=== PATIENT | male | born 1975 | race African-American/Black ===

== ENCOUNTER 2023-07-03 09:27 | Outpatient (CLI) | payer OTHER, SELFPAY ==
--- NOTE | 2023-07-03 09:59 | ECHO_ITS ---
Patient Info Name: Eddie Roldan Age: 47 years : 1975 Gender: Male Ht: 67 in Wt: 220 lbs BSA: 2.21 m2 HR: 102 bpm BP: 140 / 95 mmHg Technical Quality: Fair Exam Date: 07/03/2023 10:07 AM Exam Location: Echo Lab Patient Status: Outpatient Admit Date: 07/03/2023 Staff Ordering Physician: Kristen Mojica NP Deaf/Hard Of Hearing Specialist: Cara Mosher RDCS Attending Provider: Kristen Mojica NP Referring Physician: Yunior CASTILLO; Exam Type: CA echo doppler color flow Study Info Indications - abn ekg Complete two-dimensional, color flow and Doppler transthoracic echocardiogram is performed. Summary 1. Complete two-dimensional, color flow and Doppler transthoracic echocardiogram is performed. 2. Left ventricular systolic function is severely globally reduced, estimated at 30-35%. 3. Left ventricular chamber dimension is moderately enlarged. 4. There is mild concentric increased left ventricular wall thickness. 5. The left ventricular diastolic function is indeterminate. 6. Tissue doppler E/e' is not performed. 7. Global longitudinal strain is abnormal at -11.5% with apical sparing. 8. Left atrial chamber dimension is mildly enlarged. 9. There is trace tricuspid valve regurgitation. 10. No pulmonary hypertension, estimated pulmonary arterial systolic pressure is 28 mmHg. 11. There is trace pulmonic regurgitation. Left Ventricle Tissue doppler E/e' is not performed. Global longitudinal strain is abnormal at -11.5% with apical sparing. Left ventricular systolic function is severely globally reduced, estimated at 30-35%. Left ventricular chamber dimension is moderately enlarged. There is mild concentric increased left ventricular wall thickness. The left ventricular diastolic function is indeterminate. Right Ventricle Right ventricular chamber dimension is normal. Right ventricular systolic function is normal. Left Atria Left atrial chamber dimension is mildly enlarged. Right Atria Right atrial chamber dimension is normal. Aortic Valve The aortic valve is trileaflet. There is no aortic valve stenosis. There is no aortic valve regurgitation. Pulmonic Valve There is trace pulmonic regurgitation. Mitral Valve There is no mitral valve stenosis. There is no mitral valve regurgitation. Tricuspid Valve There is trace tricuspid valve regurgitation. No pulmonary hypertension, estimated pulmonary arterial systolic pressure is 28 mmHg. Pericardium/Pleural There is no pericardial effusion. Inferior Vena Cava Normal inferior vena cava with >50% collapse upon inspiration consistent with normal right atrial pressure, 5 mmHg. Aorta The aortic root size at the sinus of Valsalva is normal. Left Ventricular Outflow Tract Name Value Normal LVOT 2D LVOT Diameter 2.1 cm LVOT Doppler LVOT Peak Gradient 5 mmHg LVOT Mean Gradient 2 mmHg LVOT VTI 17 cm LVOT VTI/AV VTI Ratio 0.8 LVOT Stroke Volume 60 ml LVOT CO 14.9 l/min LVOT CI 6.8 l/min/m2 Pulmonic Valve
== END 2023-07-03 09:28 | disposition home or self-care (01) ==
PROVIDERS: PCP Internal Medicine; Visit Provider Nurse Practitioner
DX: R94.31 Abnormal electrocardiogram [ECG] [EKG] (principal); I51.7 Cardiomegaly
CPT/HCPCS: 93306

== ENCOUNTER 2023-08-05 09:54 | Outpatient (CLI) | payer OTHER, SELFPAY ==
[2023-08-05 12:17] LABS: Basophils Percent Auto 0.9 % (0.2-1.2); Eosinophils Absolute Auto 0.1 K/mm3 (0-0.3); Eosinophils Percent Auto 3.4 % (0-4.4); Hematocrit 44.2 % (42.0-52.0); Hemoglobin 14.5 g/dL (14.0-18.0); Lymphocytes Absolute Auto 1.22 K/mm3 (0.9-3.2); Lymphocytes Percent Auto 37.7 % (18.3-44.2); Mean Corpuscular HGB Conc 32.8 g/dl (32-36); Mean Corpuscular Hemoglobin 29.1 pg (26-34); Mean Corpuscular Volume 88.8 fl (80-100); Mean Platelet Volume 10.2 fl (7.4-10.4); Monocytes Absolute Auto 0.3 K/mm3 (0.1-0.6); Monocytes Percent Auto 9.3 % (2.6-8.5); Neutrophils Absolute Auto 1.6 K/mm3 (1.3-6.7); Neutrophils Percent Auto 48.7 % (45.5-73.1); Platelet Count Result 285 k/mm3 (150-375); Red Blood Count 4.98 M/mm3 (4.6-6.20); Red Cell Distribution Width 14.2 % (11.5-14.5); White Blood Count 3.2 K/mm3 (4.5-10.0)
[2023-08-05 12:36] LABS: Alanine Aminotransferase 20 U/L (6-50); Alkaline Phosphatase 38 U/L (38-126); Anion Gap 1 mmol/L (4-12); Aspartate Amino Transferase 51 U/L (17-59); Bilirubin,Total 0.7 mg/dL (0.2-1.3); Blood Urea Nitrogen 11 mg/dL (9-20); Calcium 9.3 mg/dL (8.4-10.2); Carbon Dioxide 29 mmol/L (22-30); Chloride 105 mmol/L (98-107); Cholesterol 182 mg/dL (0-200); Estimated Glomerular Filt Rate > 60; Glucose 93 mg/dL (65-110); HDL Direct 36 mg/dL; Potassium 4.2 mmol/L (3.4-5.0); Sodium 135 mmol/L (137-145); Triglycerides 81 mg/dL (<150)
[2023-08-05 12:47] LABS: LDL Cholesterol Direct 114 mg/dL
[2023-08-05 13:10] LABS: Creatinine Urine 156.3 mg/dL
[2023-08-05 13:12] LABS: MALB Creatinine Ratio 24.8 mg/g (0-30); Microalbumin Urine Random 38.8 mg/L (0-16.7)
== END 2023-08-05 09:55 | disposition home or self-care (01) ==
LOC: ANHGOSHLAB 09:55
PROVIDERS: PCP Internal Medicine; Visit Provider Nurse Practitioner
DX: I10 Essential (primary) hypertension (principal); E11.9 Type 2 diabetes mellitus without complications
CPT/HCPCS: 36415; 80053; 80061; 82043; 83036; 85025

== ENCOUNTER 2023-08-21 09:03 | Outpatient (CLI) | payer OTHER, SELFPAY ==
--- NOTE | ~2023-08-21 | NM_ITS ---
EXAMINATION: NM teresa stress w perfusion DATE: 08/21/2023 12:12 INDICATION: Heart disease TECHNIQUE: Rest images were obtained following intravenous administration of 9 mCi Tc99m tetrofosmin (Myoview). The patient was infused intravenously with Lexiscan (Regadenoson). Then, 27.1 mCi Tc99m te trofosmin (Myoview) was administered intravenously, and stress images were obtained initially in the supine and subsequently in the prone positions. Data was reconstructed into short axis and horizontal and vertical long axis SPECT images. Gated SPECT images were also obtained. COMPARISON: None. FINDINGS: Moderate severity. Perfusion defect involving the apical, apical lateral, apical inferior, mid inferior and basilar inferior segments which appears largely reversible consistent with ischemia with residual small fixed perfusion defect consistent with infarct at the mid inferior wall on the re st images. There is normal left ventricular chamber size and wall motion. Mild to moderately decreas ed left ventricular ejection fraction measures 34%. IMPRESSION: 1. Reversible ischemia at the apical, apical lateral, apical inferior, mid inferior and basilar infer ior right segments with superimposed small nonreversible infarct in the mid basilar segment. 2. Mild to moderately decreased left ventricular ejection fraction measuring 34%. Reviewed, dictated and finalized at location A. IMPRESSION: 1. Reversible ischemia at the apical, apical lateral, apical inferior, mid infe rior and basilar inferior right segments with superimposed small nonreversible infarct in the mid basilar segment. 2. Mild to moderately decreased left ventricular ejection fraction measuring 34 %.
--- NOTE | 2023-08-21 09:14 | EST_ITS ---
Patient Info Name: Eddie Roldan Age: 48 years : 1975 Gender: Male Ht: 67 in Wt: 205 lbs BSA: 2.13 m2 HR: 90 bpm BP: 109 / 83 mmHg Heart Rhythm: Sinus Rhythm Exam Date: 08/21/2023 10:28 AM Exam Location: Echo Lab Patient Status: Outpatient Admit Date: 08/21/2023 Staff Ordering Physician: Mars Wilder DO Attending Provider: Mars Wilder DO Exercise Technologist: Graciela Carvajal RDCS Exercise Physician: Mars Wilder DO Exam Type: CA stress teresa w NM Study Info A regadenoson stress test was performed. Summary 1. 1. Negative lexiscan stress test for ischemic ST changes by ECG criteria. 2. 2. Stable hemodynamics throughout the test. 3. 3. Nuclear scan to follow and will be reported separately. Please correlate with it. 4. 4. Patient informed of the above results. Protocol: Lexiscan Stress ECG Details Stage: REST Duration (min): 0 min : 53 sec HR (bpm): 93 SBP (mmHg): 109 DBP (mmHg): 83 Stage: REST Duration (min): 12 min : 56 sec HR (bpm): 92 SBP (mmHg): 109 DBP (mmHg): 83 Stage: STAGE 1 Duration (min): 1 min : 0 sec HR (bpm): 101 SBP (mmHg): 122 DBP (mmHg): 89 Stage: RECOVERY Duration (min): 1 min : 0 sec HR (bpm): 109 SBP (mmHg): 122 DBP (mmHg): 89 Stage: RECOVERY Duration (min): 2 min : 0 sec HR (bpm): 104 SBP (mmHg): 122 DBP (mmHg): 89 Stage: RECOVERY Duration (min): 3 min : 0 sec HR (bpm): 102 SBP (mmHg): 111 DBP (mmHg): 70 Stage: RECOVERY Duration (min): 4 min : 0 sec HR (bpm): 105 SBP (mmHg): 111 DBP (mmHg): 70 Stage: RECOVERY Duration (min): 5 min : 0 sec HR (bpm): 102 SBP (mmHg): 109 DBP (mmHg): 76 Stage: RECOVERY Duration (min): 5 min : 8 sec HR (bpm): 101 SBP (mmHg): 109 DBP (mmHg): 76 Rest HR: 92 bpm Peak HR: 110 bpm Rest Sys BP: 109 mmHg Peak Sys BP: 122 mmHg Max Pred HR: 170 bpm % Max Pred HR: 65 % Target HR: 145 bpm Max RPP: 13,420 bpm*mmHg Termination Reason: Completed protocol Cardiac Symptoms: Shortness of breath Total Time: 1 min : 0 sec Rest Leon BP: 83 mmHg Peak Leon BP: 89 mmHg Total Dose: 0.4 mg Resting ECG Sinus rhythm, inferior infarct, ST-T wave abnormality in anterolateral leads- consider ischemia. Stress ECG No ST changes. Arrhythmias None. Report Signatures
== END 2023-08-21 09:04 | disposition home or self-care (01) ==
LOC: ANHCARD 09:08
PROVIDERS: PCP Internal Medicine; Visit Provider Internal Medicine Cardiovascular Disease
DX: I25.9 Chronic ischemic heart disease, unspecified (principal)
CPT/HCPCS: 78452; 93017; A9502; J2785

== ENCOUNTER 2023-09-10 01:27 | Day surgery (SDC) | payer OTHER, SELFPAY ==
[2023-09-09 16:13] VITALS: BMI 32.1
[2023-09-10] VITALS (10 sets, daily range): BP systolic 118–148; BP diastolic 84–100; PULSE 85–93; RESP 15–20; TEMP 36.6; O2SAT 98–100; BMI 31.4
[2023-09-10 10:28] LABS: Basophils Percent Auto 0.9 % (0.2-1.2); Eosinophils Absolute Auto 0.2 K/mm3 (0-0.3); Hematocrit 49.1 % (42.0-52.0); Hemoglobin 16.3 g/dL (14.0-18.0); Lymphocytes Absolute Auto 1.21 K/mm3 (0.9-3.2); Lymphocytes Percent Auto 35.7 % (18.3-44.2); Mean Corpuscular HGB Conc 33.2 g/dl (32-36); Mean Corpuscular Hemoglobin 29.4 pg (26-34); Mean Corpuscular Volume 88.5 fl (80-100); Mean Platelet Volume 9.7 fl (7.4-10.4); Monocytes Absolute Auto 0.3 K/mm3 (0.1-0.6); Monocytes Percent Auto 7.4 % (2.6-8.5); Neutrophils Absolute Auto 1.7 K/mm3 (1.3-6.7); Platelet Count Result 257 k/mm3 (150-375); Red Blood Count 5.55 M/mm3 (4.6-6.20); Red Cell Distribution Width 14.1 % (11.5-14.5); White Blood Count 3.4 K/mm3 (4.5-10.0)
[2023-09-10 10:40] LABS: Anion Gap 7 mmol/L (4-12); Blood Urea Nitrogen 10 mg/dL (9-20); Calcium 9.5 mg/dL (8.4-10.2); Carbon Dioxide 26 mmol/L (22-30); Chloride 105 mmol/L (98-107); Estimated CRCL calculation 84 ml/min; Estimated Glomerular Filt Rate > 60; Glucose 99 mg/dL (65-110); Potassium 4.2 mmol/L (3.4-5.0); Sodium 138 mmol/L (137-145)
--- NOTE | 2023-09-10 12:21 | WPDHPUPDATE1 ---
History and Physical Update Update Date/Time: 09/10/23 12:21 History and Physical has been reviewed, including an updated exam of the patient. There are NO changes in the patient's condition. Risks, benefits, and alternatives have been discussed and questions answered. Patient agrees to proceed with procedure.
--- NOTE | 2023-09-10 12:22 | WPDMODSED ---
Moderate Sedation Note-Pt Data Patient Data Diagnosis: Heart failure with reduced LVEF, abnormal stress test Present Complaint: Heart failure with reduced LVEF, abnormal stress test Procedure to be performed/Plan: Coronary angiography, left heart cath, +/- PCI Allergies Allergy/AdvReac Type Severity Reaction Status Date / Time No Known Allergies Allergy Verified 09/10/23 10:26 Home Medications Medication Instructions Recorded Confirmed Type cholecalciferol (vitamin D3) 1,250 1,250 mcg PO WEEKLY 06/17/23 09/10/23 History mcg (50,000 unit) capsule losartan 25 mg tablet 25 mg PO DAILY #90 tabs 06/17/23 09/10/23 Rx testosterone cypionate 200 mg/mL 150 mg IM ONCE 06/17/23 09/10/23 History intramuscular oil (Depo-Testosterone) carvedilol 3.125 mg tablet 3.125 mg PO Q12H #60 tabs 07/16/23 09/10/23 Rx empagliflozin 10 mg tablet 10 mg PO DAILY #90 tabs 07/16/23 09/10/23 Rx (Jardiance) atorvastatin 20 mg tablet 20 mg PO QHS #90 tabs 08/20/23 09/10/23 Rx semaglutide 0.25 mg or 0.5 mg (2 0.5 mg (0.736 mL) subcut WEEKLY #3 08/21/23 09/10/23 Rx mg/3 mL) subcutaneous pen injector mL (Ozempic) aspirin 81 mg tablet 81 mg PO DAILY 09/10/23 09/10/23 History Current Medications: Active Medications Sodium Chloride (Normal Saline Iv) 500 mls @ 100 mls/hr IV CONT .Q5H CRISTINA Sedation/Anesthesia: No previous sedation/anesthesia problems (including family history). [facility] Social History Social History Smoking packs per day: 0 Smoking cigarettes per day: 0.0 Smoking status: Never smoker Second hand tobacco smoke exposure: Yes Alcohol intake: current Drinks per week: 1 Alcohol use details: whiskey Substance use: unknown Substance use type: does not use Do You Feel Safe in your Home?: Yes Lack of Transportation: No Lack of Food: Never True Current Housing: I Have Housing Concerned About Future Housing: No Difficulty Paying Gas/Electric Bills: No Difficulty Paying for Meds: No Currently Unemployed: No Education: High School Diploma/GED Difficulty w/ Childcare or Family Care: No Living arrangements: with family Spiritual care concerns: No Mod Sed Physical Exam Physical Exam Pre Procedural Exam: Normal: Appearance, Lungs, Heart Rate, Heart Rhythm, Neuro Exam, Extremities and Skin Hours since solid foods: 12 Hours since liquid intake: 8 Mallampati Classification: class III Internal Medicine - PN: Obj Da Vital Signs Vital Signs: Vital Signs - 24 hr 09/10/23 10:35 Temperature 36.6 C Pulse Rate 93 Respiratory Rate 16 Blood Pressure 148/98 H Pulse Oximetry 98 Oxygen Delivery Room Air Meds/Results Medications: Active Medications Generic Name Dose Route Start Last Admin Trade Name Freq PRN Reason Stop Dose Admin Sodium Chloride 500 mls @ 100 mls/hr 09/10/23 10:00 Normal Saline Iv IV CONT .Q5H CRISTINA Labs 09/10/23 10:24 09/10/23 10:24 Labs: Laboratory Results - last 24 hr 09/10/23 10:24 WBC 3.4 L RBC 5.55 Hgb 16.3 Hct 49.1 MCV 88.5 MCH 29.4 MCHC 33.2 RDW 14.1 Plt Count 257 MPV 9.7 Immature Gran % (Auto) 0.0 Neut % (Auto) 51.0 Lymph % (Auto) 35.7 Mellette % (Auto) 7.4 Eos % (Auto) 5.0 H Baso % (Auto) 0.9 Lymph # (Auto) 1.21 Mellette # (Auto) 0.3 Eos # (Auto) 0.2 Baso # (Auto) 0.0 Abs Immat Gran (auto) 0.00 Absolute Neuts (auto) 1.7 Absolute Nucleated RBC 0.000 Nucleated RBC % 0.0 Sodium 138 Potassium 4.2 Chloride 105 Carbon Dioxide 26 Anion Gap 7 BUN 10 Creatinine 1.00 Estim Creat Clear Calc 84 Estimated GFR > 60 Glucose 99 Calcium 9.5 ASA Classification/Sedation ASA Classification/Sedation ASA Class: III Emergent: No Risks: Risks, benefits and alternatives explained and patient/family accepted plan for sedation. Patient re-evaluated immediately prior to sedation.
--- NOTE | 2023-09-10 12:23 | WPDCARDPROC ---
Cardiac Cath Procedure Note Date of procedure:: 09/10/23 Performing physician:: CATHETERIZATION LABORATORY REPORT Procedure Date: 09/10/2023 Volunteer Firefighter: Didi Colon M.D., [facility]? Referring Physician: Mars Wilder MD Anesthesia: Versed and Fentanyl were ordered and given in my presence at 11:49, procedure ended at 12:18. Supervision of nurse monitored moderate sedation with Versed and Fentanyl was provided for 29 minutes. Total of Versed 1mg and Fentanyl 50mcg were administered by the Straight Cutter RN Carolina Lopez. Pre-op Diagnosis: Coronary artery disease Post-op Diagnosis: Non-obstructive coronary artery disease Procedure(s): 1. Moderate sedation 2. Ultrasound-guided access of the right radial artery 3. Coronary angiography Access Site: Right radial artery Brief History and Clinical Indications: Patient is a 48 year old male who is referred for [facility] for heart failure with reduced LVEF and abnormal stress test. All risks, benefits and alternatives to left heart catheterization with or without percutaneous coronary intervention was discussed at length with the patient. Risk of complications including but not limited to bleeding, infection, arrhythmia, stroke, worsening kidney function, blood loss, groin hematoma, limb loss, emergency coronary artery bypass grafting, and even were discussed with the patient and all questions were answered. The patient understood and wished to proceed. Time out called, patient name, date of , medical record number, allergies, procedure performed, identify Volunteer Firefighter, patient and staff member concurred with accurate data, procedure carried on. Findings: LEFT HEART CATHETERIZATION FINDINGS: 1. Left main: The left main coronary artery is widely patent without any significant obstructive disease. 2. Left anterior descending: The LAD and the diagonal branches have mild luminal irregularities without any significant obstructive angiographic disease. 3. Left circumflex: Proximal LCX has luminal irregularities. The mid to distal portion of the LCX has very mild diffuse disease. The main marginal branch has mild luminal irregularities. No significant obstructive angiographic disease. 4. Right coronary artery: The RCA has mild luminal irregularities without any significant obstructive angiographic disease. The RCA is the dominant vessel. Description of Procedure: Informed consent signed and placed in the chart. Patient transferred to dental laboratory technology teacher room. Prepped and draped in usual sterile fashion. 2% lidocaine injected subcutaneously in right wrist area. 22-gauge venipuncture catheter used to access the right radial artery under ultrasound guidance. 6-FR slender sheath placed in right radial artery. Nitroglycerine and Verapamil were given intraarterial through the sheath. Versacore wire advanced under fluoroscopy 5F Tig 4 diagnostic catheter engaged Left Main Coronary Artery. 5F FR 4 diagnostic catheter engaged Right Coronary Artery Multiple orthogonal angiogram obtained and reviewed Unable to cross the aortic valve with a 5F Pigtail diagnostic catheter via right radial artery due to difficulty with manipulating catheter from right radial access. Hemostasis was achieved by application of TR band. Post Operative Condition: Stable No significant blood loss Disposition: Home Plan: The patient will be monitored in the recovery area. Discharge home after bed rest is completed. The above findings were discussed with the referring physician. Continue aggressive medical therapy and risk factor modification. ? Didi Colon M.D. Interventional Cardiology
== END 2023-09-10 15:30 | disposition home or self-care (01) ==
PROVIDERS: PCP Internal Medicine; Visit Provider Internal Medicine
PROC: (CPT 93454; principal; 2023-09-10 11:30)
DX: I25.10 Atherosclerotic heart disease of native coronary artery without angina pectoris (principal); R94.39 Abnormal result of other cardiovascular function study; Z79.85 Long-term (current) use of injectable non-insulin antidiabetic drugs; Z79.82 Long term (current) use of aspirin
CPT/HCPCS: 36415; 80048; 85025; 93454; A9270; C1769; C1887; C1894; J1644; J2250; J2305; J3010; J7040

== ENCOUNTER 2023-11-13 10:21 | Outpatient (CLI) | payer OTHER, SELFPAY ==
[2023-11-13 14:23] LABS: Basophils Percent Auto 0.7 % (0.2-1.2); Eosinophils Absolute Auto 0.1 K/mm3 (0-0.3); Eosinophils Percent Auto 3.1 % (0-4.4); Hematocrit 48.8 % (42.0-52.0); Hemoglobin 16.1 g/dL (14.0-18.0); Immature Granulocyte Absolute 0.01 K/mm3 (0.00-0.031); Immature Granulocyte Percent A 0.2 % (0-0.5); Lymphocytes Absolute Auto 1.35 K/mm3 (0.9-3.2); Lymphocytes Percent Auto 32.3 % (18.3-44.2); Mean Corpuscular Hemoglobin 29.6 pg (26-34); Mean Corpuscular Volume 89.7 fl (80-100); Mean Platelet Volume 10.3 fl (7.4-10.4); Monocytes Absolute Auto 0.3 K/mm3 (0.1-0.6); Monocytes Percent Auto 7.9 % (2.6-8.5); Neutrophils Absolute Auto 2.3 K/mm3 (1.3-6.7); Neutrophils Percent Auto 55.8 % (45.5-73.1); Platelet Count Result 282 k/mm3 (150-375); Red Blood Count 5.44 M/mm3 (4.6-6.20); Red Cell Distribution Width 13.6 % (11.5-14.5); White Blood Count 4.2 K/mm3 (4.5-10.0)
[2023-11-13 14:48] LABS: Anion Gap 8 mmol/L (4-12); Blood Urea Nitrogen 13 mg/dL (9-20); Calcium 9.2 mg/dL (8.4-10.2); Carbon Dioxide 29 mmol/L (22-30); Chloride 101 mmol/L (98-107); Cholesterol 160 mg/dL (0-200); Estimated Glomerular Filt Rate > 60; Glucose 83 mg/dL (65-110); HDL Direct 49 mg/dL; Sodium 138 mmol/L (137-145); Triglycerides 55 mg/dL (<150)
[2023-11-13 14:49] LABS: Hemoglobin A1C 6.1 % (<5.7)
[2023-11-13 14:58] LABS: LDL Cholesterol Direct 90 mg/dL
== END 2023-11-13 10:22 | disposition home or self-care (01) ==
LOC: ANHGOSHLAB 10:22
PROVIDERS: PCP Internal Medicine; Visit Provider Nurse Practitioner
DX: E78.5 Hyperlipidemia, unspecified (principal); E11.9 Type 2 diabetes mellitus without complications; I10 Essential (primary) hypertension
CPT/HCPCS: 36415; 80048; 80061; 83036; 85025

== ENCOUNTER 2024-10-03 11:01 | Outpatient (CLI) | payer OTHER, SELFPAY ==
--- OUTSIDE RECORDS SUMMARY | 2024-10-03 11:39 | XMS_ITS | Clinical Summary ---
Author Organization [facility] rofessional Office [place] Address [address] [place] [id number] Care Team Providers Care Wrong Address Clerk Name Role Phone Randy Irwin MD, Tobi Luna Primary Care Provide r Unavailable Allergies No known active allergies Medications aspirin (ECOTRIN EC) 81 mg Tablet, Delayed Release (E.C.) Take 81 mg by mouth daily. Active ONETOUCH ULTRA TEST StripIndications:T ype 2 diabetes mellitus without complication, without long-term current use of insulin ([facility]) TEST ONCE DAILY 150 Strip 3 04/26/20 17 Active metFORMIN (GLUCOPHAGE) 500 mg tabletIndications: Type 2 diabetes mellitus without complication, without long-term current use of insulin (CMS/HCC) TAKE 1 TABLET BY MOUTH TWICE DAILY WITH MEALS 180 Tablet 1 04/20/20 19 Active atorvastatin (LIPITOR) 40 mg tabletIndications: Mixed hyperlipidemia TAKE 1 TABLET(40 MG) BY MOUTH IN THE EVENING 90 Tablet 1 04/20/20 19 Active hydroCHLOROthiazid e 25 mg tabletIndications: Benign hypertension Take 1 Tablet (25 mg) by mouth daily. 90 Tablet 1 04/20/20 19 Active lisinopril (PRINIVIL) 40 mg tabletIndications: Benign hypertension Take 1 Tablet (40 mg) by mouth daily. 90 Tablet 1 04/20/20 19 Active liraglutide (VICTOZA) 0.6 mg/0.1 mL (18 mg/3 mL)Indications:Typ e 2 diabetes mellitus without complication, without long-term current use of insulin (CMS/HCC) Inject 0.6 mg by subcutaneous injection daily. For the first week, then inject 1.2 mg daily thereafter 6 mL 4 04/20/20 19 Active Insulin [place], Disposable, (Wanda Pen Needle) 32 gauge x 5/32 NeedleIndications: Type 2 diabetes mellitus without complication, without long-term current use of insulin ([facility]) Use weekly with Victoza 12 Each 3 09/01/19 20 Active Active Problems Problem Noted Date Diagnosed Date Erectile dysfunction 01/22/2017 Type 2 diabetes mellitus wit hout complication, without long-term current use of insulin 02/20/2016 Overview (04/20/2019): 43 y.o. male for follow up of diabetes. Diabetic Review of Systems - medication compliance: noncompliant much of the time, diabetic diet compliance: compliant most of the time, home glucose monitoring: is not performed, further diabetic ROS: no polyuria or polydipsia, no chest pain, dyspnea or TIA's, no numbness, tingling or pain in extremities, no unusual visual symptoms, no hypoglycemia, no medication side effects noted, last eye exam approximately 12 months ago. Other symptoms and concerns: none. Lab Results Component Value Date/Time HGBA1C 7.9 (H) 02/20/2016 11:14 AM NZLZ3OZOB 7.6 (A) 08/20/2017 03:34 PM LDTU1UJOI 9.5 (A) 04/23/2017 09:30 AM UEEX6EIDE 8.6 (A) 01/22/2017 09:52 AM LDLCALC 187 (H) 04/09/2017 10:08 AM CREAT 1.11 04/09/2017 10:08 AM Assessment & Plan (09/01/2019 9:31 PM CDT): Diabetes: Inadequate control. Continue current plan of care. Medications reviewed and refilled/adjusted as indicated. See medication orders. Labs ordered/reviewed. Encouraged to get his blood tested. Assessment & Plan (04/20/2019 1:49 PM [facility] NURSE): Diabetes: Inadequate control. Continue current plan of care. Medications reviewed and refilled/adjusted as indicated. See medication orders. Labs ordered/reviewed. Reminded to get yearly retinal exam. Addressed ADA/low CHO diet. Benign hypertension 02/20/2016 Overview (04/20/2019): Hypertension is not under control; not taking medications as instructed, no side effects of medications, no chest pain on exertion, no dyspnea on exertion, no edema. Assessment & Plan (09/01/2019 9:34 PM CDT): Suboptimal control. Patient is encouraged to purchase a blood pressure cuff to measure his blood pressure. Assessment & Plan (04/20/2019 1:51 PM B[facility] NURSE): Stable and Suboptimal control. Resume medication Mixed hyperlipidemia 02/20/2016 Overview (09/01/2019): This patient has hyperlipidemia. It is well controlled Cardiovascular risk analysis - 44 y.o. male diabetic, hypertension, hyperlipidemia. Not taking medications as instructed,no chest pain on exertion, no dyspnea on exertion, no edema. The 10-year ASCVD risk score (Becka JACKSON Jr., et al., 2013) is: 16.5% Values used to calculate the score: Age: 44 years Sex: Male Is Non- : Yes Diabetic: Yes Tobacco smoker: No Systolic Blood Pressure: 140 mmHg Is BP treated: Yes HDL Cholesterol: 54 mg/dL Total Cholesterol: 269 mg/dL Lab Results Component Value Date/Time CHOLTOT 269 (H) 04/09/2017 10:08 AM CHOLTOT 210 (H) 02/20/2016 11:14 AM HDL 54 04/09/2017 10:08 AM HDL 39 (L) 02/20/2016 11:14 AM LDLCALC 187 (H) 04/09/2017 10:08 AM LDLCALC 146 (H) 02/20/2016 11:14 AM TRIGLYCERIDE 139 04/09/2017 10:08 AM TRIGLYCERIDE 123 02/20/2016 11:14 AM ALT 20 04/09/2017 10:08 AM AST 21 04/09/2017 10:08 AM Assessment & Plan (09/01/2019 9:33 PM CDT): Stable. The current medical regimen is effective; continue present plan and medications. Encouraged to get his blood drawn as it has not been drawn in quite some time. Obesity (BMI 30.0-34.9) 02/20/2016 Assessment & Plan (04/20/2019 1:50 PM [facility] NURSE): Stable. The current medical regimen is effective; continue present plan. Resolved Problems Problem Noted Date Diagnosed Date Resolved Date Tobacco use 02/20/2016 08/20/2017 Immunizations Immunization Administration Dates Next Due (PNEUMOVAX 23)(50 YRS UP) PN EUMOCOCCAL POLYSACCHARIDE (PPV23) 0.5 ML, IM 04/23/2017 (PREVNAR 13)(6 WKS UP) PNEUM OCOCCAL CONJUGATE (PCV13) 0.5 ML, IM 03/19/2016 INFLUENZA VACCINE QUADRIVALENT 3 YR UP PF IM Influenza Vaccine Quad Split 3+ Yrs Im 7 Influenza Vaccine Split 3+ Yrs PF IM 04/20/2019 Family History Medical History Relation Name Comments Healthy Daughter Hypertension Father Diabetes Mother Hypertension Mother Healthy Son Asthma Neg Hx Bronchitis Neg Hx Cancer Neg Hx Emphysema Neg Hx Heart Failure Neg Hx Lung Cancer Neg Hx Mesothelioma Neg Hx Thyroid Disease Neg Hx Relation Name Status Comments Daughter Alive Father Alive Mother Alive Son Alive Social History Tobacco Use Types Packs/Day Years Used Date Smoking Tobacco: Former Cigars Smokeless Tobacco: Never Tobacco Cessation:Ready to Q uit: No Comments:Quit 2015 Alcohol Use Standard Drinks/Week Comments Yes 0 (1 standard drink = 0.6 oz pur e alcohol) 2 mixed drinks every 2 weeks Sex and Gender Information Value Date Recorded Sex Assigned at Not on file Legal Sex Male 10:14 AM CDT Gender Identity Not on file Sexual Orientation Not on file Last Filed Vital Signs Vital Sign Reading Time Taken Comments Blood Pressure 140/80 04/20/2019 1:08 PM [facility] NURSE Pulse 100 04/20/2019 1:08 PM [facility] C[facility] NURSE Temperature 37.1 C (98.7 F) 04/20/2019 1:08 PM [facility] C[facility] NURSE Respiratory Rate 16 04/20/2019 1:08 PM B[facility] C[facility] NURSE Oxygen Saturation 98% 04/20/2019 1:08 PM [facility] NURSE Inhaled Oxygen Concentration - - Weight 103.4 kg (228 lb) 04/20/2019 1:08 PM B[facility] C[facility] NURSE Height 175 cm (5' 8.9) 04/20/2019 1:08 PM B[facility] C[facility] NURSE Body Mass Index 33.77 04/20/2019 1:08 PM B[facility] C[facility] NURSE Plan of Treatment Health Maintenance Due Date Last Done Comments DIABETES ANNUAL RETINAL EXAM 08/14/1991 DTAP/TDAP/TD VACCINES (1 - Tdap) 1992 HEPATITIS B VACCINES (1 of 3 - 19+ 3-dose series) 1992 DIABETES HBA1C Q 6 MONTHS 02/19/20182017, 04/23/2017, 01/22/2017, Additional history exists LDL CHOLESTEROL ANNUAL 04/09/2018 04/09/2017, 2015 DIABETES MICROALBUMIN ANNUAL SCREEN 05/01/2018 05/01/2017, 04/09/2017 COLORECTAL SCREENING 2018 Colorectal Cancer Screening 2018 FIT-DNA Q 3 years 2018 FIT/FOBT Q 1 year 2018 Flex Sig/CT Colonography Q 5 years 2018 DIABETES ANNUAL FOOT EXAM 04/20/20202018, 04/23/2017, 01/22/2017 ZOSTER VACCINE (1 of 2) 08/14/2023 INFLUENZA VACCINE (#1) 2023 9, 01/22/2017, 02/20/2016 Procedures Procedure Name Priority Date/Time Associated Diagnosis Comments POC HEMOGLOBIN A1C Routine 08/20/2017 3: 34 PM CDT Type 2 diabetes mellitus without complication, without long-term current use of insulin ([facility]) MICROALBUMIN/CREATI NINE RATIO, RANDOM UR Routine 05/01/2017 10:19 AM [facility] NURSE Type 2 diabetes mellitus without complication, without long-term current use of insulin ([facility]) Benign hypertension LIPID PANEL Routine 04/09/2017 10:08 AM [facility] NURSE Mixed hyperlipidemia from Last 3 Months or Most Recently Relevant to Health Maintenance Results * (ABNORMAL) POC HEMOGLOBIN A1C (08/20/2017 3:34 PM CDT) HGB A1C POC 7.6(A) 4.0 - 6.0 % [facility] Blood, capillary 08/20/2017 3:34 PM CDT us Toñito Stone MD POINT OF CARE TESTING Final Result [facility] CLIA# [id number] [address] * MICROALBUMIN/CREATININE RATIO, RANDOM UR (05/01/2017 10:19 AM [facility] NURSE) MICROALBUMIN, URINE <1.2 No Reference Range mg/dL 05/01/2017 3:46 PM [facility] CREATININE, URINE 250.0 40.0 - 278.0 mg/dL 05/01/2017 3:46 PM [facility] Molecular Imprints [facility] Comment: Reference Range varies with fluid intake and diet. MICROALBUMIN/C REAT RATIO, UR <4.8 <17.0 mg/g 05/01/2017 3:46 PM [facility] Molecular Imprints [facility] Urine URINE SPECIMEN OBTAINED BY CLEAN CATCH PROCEDURE / Unknown Collection / Unknown 05/01/2017 10:19 AM [facility] NURSE 05/01/2017 10:19 AM [facility] Molecular Imprints [facility] - 05/01/2017 3:46 PM [facility] NURSE Condition Microalbumin/Creat ratio Normal Males <17 Normal Females <25 Microalbuminuria Males 17-299 Microalbuminuria Females 25-299 Overt proteinuria >=300 us Toñito Stone MD URINE ORDERABLES Delicia l Result [facility] Molecular Imprints [facility]# [id number] [address] [facility] [place] [address] * (ABNORMAL) LIPID PANEL (04/09/2017 10:08 AM [facility]) CHOLESTEROL 269(H) <200 mg/dL 04/09/2017 5:31 PM [facility] Molecular Imprints [facility] TRIGLYCERIDE 139 <150 mg/dL 04/09/2017 5:31 PM [facility] Molecular Imprints [facility] HDL 54 40 - 59 mg/dL 04/09/2017 5:31 PM [facility] Molecular Imprints [facility] LDL CALCULATED 187(H) <100 mg/dL 04/09/2017 5:31 PM [facility] C[facility] NURSE [facility] NON-HDL CHOLESTEROL 215(H) <130 mg/dL 04/09/2017 5:31 PM [facility] Blood Venipuncture / Unknown 04/09/2017 10:08 AM [facility] NURSE 04/09/2017 10:08 AM [facility] NURSE Narrative [facility] - 04/09/2017 5:31 PM [facility] NURSE TOTAL CHOLESTEROL mg/dL Desirable <200 Borderline high 200-239 High >=240 TRIGLYCERIDES mg/dL Normal <150 Borderline high 150-199 High 200-499 Very high >=500 HDL CHOLESTEROL mg/dL Low <40 Normal 40-59 Desirable >=60 NON HDL CHOLESTEROL mg/dL Optimal <130 Near Optimal 130-159 Borderline High 160-189 Very High >=190 Calculated LDL mg/dL Optimal <100 Near Optimal 100-129 Borderline High 130-159 High 160-189 Very High >=190 ATPIII Guidelines Reference Ranges for Lipid Panels (NCEP/AMA) Toñito Stone MD CHEMISTRY ORDERABLES Final Result [facility] CLIA# [id number] [address] [place] [address] from Last 3 Months or Most Recently Relevant to Health Maintenance Insurance Care Teams Wrong Address Clerk Relationship Specialty Start Date End Date Tobi Padilla Jr., MD PCP - General Internal Medicine 04/20/19
--- OUTSIDE RECORDS SUMMARY | 2024-10-03 11:39 | XMS_ITS | Clinical Summary ---
Author Organization [facility] Address [address] [place] [address] Care Team Providers Care Vp Marketing Services And Skin Name Role Phone Toñito Stone MD Primary Care Provider [phone] Source Comments [facility],non-owned Affiliates and Associated Physician Practices is amultiple site organization consisting of ambulatory clinics and hospital sitesin [place], [place], [place] and [place]. This disclosure is being madepursuant to the Care Everywhere program and may not contain all information available regarding this patient. Last updated 18.[facility] [employer] Allergies No known active allergies Medications * Be aware that medications may not be up to date on this document. Alwaysverify current medications with the patient. LISINOPRIL PO Take 20 mg by mouth once daily. Active PRAVASTATIN SODIUM PO Take 20 mg by mouth at bedtime. Active Multiple Vitamin (MULTI VITAMIN MENS PO) Take by mouth once daily. Active METFORMIN HCL PO Take 500 mg by mouth once daily. Active hydrocodone-acet aminophen (NORCO) 5-325 MG tablet Take 1-2 Tabs by mouth every 4 hours as needed for Pain. 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 Gender Identity Not on file Sexual Orientation Not on file Last Filed Vital Signs Vital Sign Reading Time Taken Comments Blood Pressure 150/100 12/08/2013 5:46 PM CDT Pulse 104 12/08/2013 5:46 PM CDT Temperature 36.6 C (97.8 F) 12/08/2013 5:46 PM CDT Respiratory Rate 16 12/08/2013 5:46 PM CDT Oxygen Saturation 97% 12/08/2013 5:46 PM CDT Inhaled Oxygen Concentration - - Weight 118.8 kg (262 lb) 12/08/2013 1:29 PM CDT Height 170.2 cm (5' 7) 12/08/2013 1:29 PM CDT Body Mass Index 41.04 12/08/2013 1:29 PM CDT Plan of Treatment Health Maintenance Due Date Last Done Comments COLOGUARD (AGES 45-75) - COL ON CA SCREENING 1973 COLON MONITORING 1973 COLONOSCOPY - COLON CA SCREENING 1973 CT COLONOGRAPHY - COLON CA SCREENING 1973 Colorectal Cancer Screening 1973 FIT - COLON CA SCREENING 1973 FLEX SIG - COLON CA SCREENING 1973 HIV SCREENING 1988 HEPATITIS C SCREENING 08/09/1991 DTAP/TDAP/TD VACCINES (1 - Tdap) 1992 HEPATITIS B VACCINE (1 of 3 - 19+ 3-dose series) 1992 PNEUMOCOCCAL VACCINE 50+ (1 of 1 - PCV) 08/14/2023 ZOSTER VACCINE (1 of 2) 08/14/2023 COVID-19 VACCINE (1 - 2023-2 5 season) 2024 DEPRESSION SCREENING 05/04/2024 INFLUENZA VACCINE (Season Ended) 2025 HIB VACCINE Aged Out No longer eligi ble based on patient's age to complete this topic HPV VACCINE Aged Out No longer eligi ble based on patient's age to complete this topic MENINGOCOCCAL (Group B) VACC INE SHARED DECISION-MAKING Aged Out No longer eligibl e based on patient's age to complete this topic MENINGOCOCCAL GROUPS A/C/Y/W VACCINE Aged Out No longer eligible b ased on patient's age to complete this topic Insurance [facility] Care Teams Vp Marketing Services And Skin Relationship Specialty Start Date End Date Toñito Stone MD PCP - General Family Medicine 05/17/13
--- OUTSIDE RECORDS SUMMARY | 2024-10-03 11:39 | XMS_ITS | Encounter Summary ---
Author Organization [facility] Health Address [address] [place] [address] Care Team Providers Care Linen Attendant Name Role Phone Toñito Stone MD Primary Care Provider Encounter Details Date Type Department Care Team (Late st Contact Info) Description 12/21/2013 [facility] Outpatient Visit [facility] [address] [place] [id number] Pino Young MD [address] [place] [address] Social History Tobacco Use Types Packs/Day Years Used Date Smoking Tobacco: Never Alcohol Use Standard Drinks/Week Comments No 0 (1 standard drink = 0.6 oz pur e alcohol) occ Sex and Gender Information Value Date Recorded Sex Assigned at Not on file 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
[2024-10-03 14:28] LABS: Basophils Percent Auto 0.9 % (0.2-1.2); Eosinophils Absolute Auto 0.2 K/mm3 (0-0.3); Eosinophils Percent Auto 5.8 % (0-4.4); Hematocrit 43.5 % (42.0-52.0); Hemoglobin 14.7 g/dL (14.0-18.0); Immature Granulocyte Absolute 0.01 K/mm3 (0.00-0.031); Immature Granulocyte Percent A 0.3 % (0-0.5); Lymphocytes Absolute Auto 1.15 K/mm3 (0.9-3.2); Lymphocytes Percent Auto 33.1 % (18.3-44.2); Mean Corpuscular HGB Conc 33.8 g/dl (32-36); Mean Corpuscular Hemoglobin 30.1 pg (26-34); Mean Platelet Volume 10.3 fl (7.4-10.4); Monocytes Absolute Auto 0.3 K/mm3 (0.1-0.6); Monocytes Percent Auto 7.8 % (2.6-8.5); Neutrophils Absolute Auto 1.8 K/mm3 (1.3-6.7); Neutrophils Percent Auto 52.1 % (45.5-73.1); Platelet Count Result 287 k/mm3 (150-375); Red Blood Count 4.89 M/mm3 (4.6-6.20); Red Cell Distribution Width 13.2 % (11.5-14.5); White Blood Count 3.5 K/mm3 (4.5-10.0)
[2024-10-03 14:47] LABS: Hemoglobin A1C 5.5 % (<5.7)
[2024-10-03 15:17] LABS: Alanine Aminotransferase 21 U/L (6-50); Albumin Level 4.3 g/dL (3.5-5.1); Alkaline Phosphatase 46 U/L (38-126); Anion Gap 7 mmol/L (4-12); Aspartate Amino Transferase 47 U/L (17-59); Bilirubin,Total 1.1 mg/dL (0.2-1.3); Blood Urea Nitrogen 13 mg/dL (9-20); Calcium 9.5 mg/dL (8.4-10.2); Carbon Dioxide 27 mmol/L (22-30); Chloride 101 mmol/L (98-107); Cholesterol 270 mg/dL (0-200); Estimated Glomerular Filt Rate > 60; Glucose 87 mg/dL (65-110); HDL Direct 57 mg/dL; Potassium 4.1 mmol/L (3.4-5.0); Sodium 135 mmol/L (137-145); Triglycerides 113 mg/dL (<150)
[2024-10-03 15:20] LABS: Creatinine Urine 216.4 mg/dL
[2024-10-03 15:28] LABS: LDL Cholesterol Direct 138 mg/dL; MALB Creatinine Ratio 14.1 mg/g (0-30); Microalbumin Urine Random 30.6 mg/L (0-16.7)
[2024-10-03 15:43] LABS: Prostate Specific Antigen 1.1 ng/mL (< OR = 4.0)
== END 2024-10-03 11:02 | disposition home or self-care (01) ==
LOC: ANHGOSHLAB 11:02
PROVIDERS: PCP Internal Medicine; Visit Provider Nurse Practitioner
DX: Z12.5 Encounter for screening for malignant neoplasm of prostate (principal); I10 Essential (primary) hypertension; E11.9 Type 2 diabetes mellitus without complications
CPT/HCPCS: 36415; 80053; 80061; 82043; 83036; 84153; 84443; 85025; G0103

== ENCOUNTER 2025-04-20 10:59 | Outpatient (CLI) | payer OTHER, SELFPAY ==
--- OUTSIDE RECORDS SUMMARY | 2024-07-11 02:20 | XMS_ITS ---
Author Organization 1 OF [facility] Address [address] [place] [id number] Care Team Providers Care Leveler Name Role Phone UNKNOWN, UNKNOWN Primary Care Provider Unavailab Keeley Rene Unavailable [phone] REASON FOR VISIT right foot pain Encounters Encounter Location Date Provider Diagnosis [facility] OF [facility] [address] [id number] 07/11/2024 Keeley Kapoor Plan Of Treatment No Information History and Physical Notes * HPI (History of Present Illness) Category Sub-Category Detail Notes Category Not es Primary reason for visit: New Patient Evaluation: 48 year old diabetic male, referred by PTO with chief complaint of of days weeks months duration aggravated byAge at diabetes diagnosis: Last HBA1C: MA assisting with visit: HPI/Rooming: ..... Chart Prep Irshan Examination Category Sub-Category Detail Notes Category Not es General Examination Mental status: Cooperative, Oriented to person, place and time, Mood and affect: normal, Judgement and intellect: normal with appropriate response to questions Shoes today: XXXX Constitutional / Appearance: No acute di stress , Well nourished, Appropriate personal hygiene Lower Extremity VASCULAR: Pulses: DP and PT pulse s, palpable, bilateral Temperature gradient: warm from proximal to distal, bilateral Pedal hair: present, bilateral Capillary refill at distal toes less sanford n 3 seconds Lower Extremity NEURO: Monofilament test (10 gra m pressure) Exam of 07/11/2024: Vibration perception: Exam of 07/11/2024 : Neurological status: normal sensation to sharp/ dull with normal and symmetric muscle tone bilateral Lower Extremity MSK: Left lower extremit y inspection and palpation: No palpable masses or nodules noted. Right lower extremity inspec tion and palpation: No palpable masses or nodules noted. Gait Gait unremarkable wi th normal posture, propulsion and balance Lower Extremity DERM: Skin: well hydra ofelia , no suspicious lesions, without interdigital maceration, bilateral Progress Notes * BOBBY Eddie PDOB:1975 (49 yo M)Acc No.[id number]:07/11/2024 Patient: Nahomy lilianaEddie Provider: Tra Kapoor DPM :1975 A ge:48 Y S ex:Male Date:07/11/2024 Address:[address] [place], [place] [id number] Pcp:UNKNOWN UNKNOWN Subjective: * Chief Complaints: * R ight foot pain * HPI: M A assisting with visit:: Chart Prep I [facility]. HPI/Rooming: . ..... P [facility] reason for visit:: New Patient Evaluation: [age] year old diabetic male, referred by PTO with chief complaint of of days weeks months duration aggravated by A ge at diabetes diagnosis: L ast HBA1C:. Objective: * Examination: G eneral Examination: Constitutional / Appearance: N o acute distress , Well nourished, Appropriate personal hygiene. Mental status: C ooperative, Oriented to person, place and time, Mood and affect: normal, Judgement and intellect: normal with appropriate response to questions. Shoes today: X XXX. L ower Extremity VASCULAR: : Pulses: D P and PT pulses, palpable, bilateral. Temperature gradient: w arm from proximal to distal, bilateral. Pedal hair: p resent, bilateral. Capillary refill at distal toes l ess than 3 seconds. ? L ower Extremity DERM: : Skin: w ell hydrated , no suspicious lesions, without interdigital maceration, bilateral. L ower Extremity NEURO: : Neurological status: n ormal sensation to sharp/ dull with normal and symmetric muscle tone bilateral. Monofilament test (10 gram pressure) E xam of 07/11/2024:.? Vibration perception: E xam of 07/11/2024:. ? L ower Extremity MSK: : Gait G ait unremarkable with normal posture, propulsion and balance. Left lower extremity inspection and palpation: N o palpable masses or nodules noted.. Right lower extremity inspection and palpation: N o palpable masses or nodules noted. . * Electronic signature of Joan Kapoor DPM on 04/20/2025 at 12:15 PM [employer] Sign off status: Pending * Provider: Tra Kapoor DPM Date: 0 07/11/2024 Generated for Jacoby li/June/Laron on: 1 06/21/2024 12:15 PM [employer]ER
--- OUTSIDE RECORDS SUMMARY | 2025-04-20 12:16 | XMS_ITS | Patient Health Record ---
Author Organization 1 OF Astrid junior [facility] Address [address] [place] [address] Care Team Providers Care Operations And Maintenance Supervisor Name Role Phone UNKNOWN, UNKNOWN Primary Care Provider Dongab elkin Antwon Keeley Unavailable [phone] Allergies No Known Allergies Reason For Referral No Information Medications Medication SIG (Take, Route, Frequency, Duration) Notes Start Date End Date Status Diclofenac Sodium 1 % Gel as directed To pical Apply no more than 4 grams to affected area of foot Q6-8 hours PRN Pain; Duration: 30 days 07/11/2024 Active Ketoconazole 2 % Cream 1 application to affected area on bottom of feet Topical Once a day; Duration: 60 days 07/11/2024 Active Losartan Potassium A ctive Atorvastatin Calcium Active Ozempic Active Meloxicam 7.5 MG Tablet 1 tablet Orally once a day; Duration: 30 days 07/11/2024 Active Social History Tobacco Use: Social History Observation Description Date Details (start date - stop date) Never Smoker NA - NA Social History Tobacco Use: Social Info Question Answer Notes Tobacco Control (Standard) Tobacco use: Nonsmoker Additional Details Category Social Info Options Details Miscellaneous: Occupation: Works full-ti me Living with: alone Drugs/Alcohol: Do you smoke marijuana? 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.071) Active confirmed Vital Signs Height 67 in 08/17/2024 Weight 195 lbs 08/17/2024 BMI 30.54 kg/m2 08/17/2024 Encounters Encounter Location Date Provider Diagnosis 1 OF Astrid Castano [facility] [address] [place] [phone] 07/11/2024 Keeley Kapoor Arthritis of first metatarsophalangeal (MTP) joint of right foot M19.071 ; Type 2 diabetes mellitus without complication, without long-term current use of insulin E11.9 ; Tinea pedis of both feet B35.3 and Right foot pain M79.671 1 OF Astrid Castano [facility] [address] [place] [address] 08/17/2024 Keeley Kapoor Arthritis of first metatarsophalangeal (MTP) joint of right foot M19.071 ; Right foot pain M79.671 and Tinea pedis of both feet B35.3 Assessments Encounter Date Diagnosis (ICD Code) Assessment Notes Treatment Notes Treatment Clinical Notes Section Notes 07/11/2024 Type 2 diabetes mellitus without complication, without long-term current use of insulin (ICD-10 - E11.9) Diabetic foot education was discussed including the nature of increased risk of developing foot problems due to the damage nerves and vessels of the feet caused by diabetes. The importance of daily self foot exams was stressed. Additionally, the patient was encouraged to control the blood sugar as well as possible and I explained the direct correlation between the incidence of diabetic foot complications and how well the blood sugar is controlled. I encouraged the patient to walk for exercise to help improve circulation to the feet as well as to help control excess blood sugar which I explained may also help to reduce or slow the progression of neuropathy symptoms. Additionally I recommended daily application of lotion to the feet to keep skin well hydrated. Advised to avoid walking w/o shoes on and discussed the importance of wearing properly fitted and supportive shoes and how wearing a shoe that does not fit properly can lead to blisters, open sores, infections and amputation. Literature regarding diabetic foot care was dispensed. 07/11/2024 Arthritis of first metatarsophalangeal (MTP) joint of right foot (ICD-10 - M19.071) Patient visit today included a review of medical history, review of systems, physical exam and discussion of exam findings, diagnostic test results, and discussion of diagnoses and treatment options. Recommended initial treatment today consisting of resting of the foot as needed, icing of the foot as needed. He was given a prescription for diclofenac gel. He was also given a prescription for oral meloxicam. I discussed the importance of wearing good supportive shoes and avoiding shoes with a narrow toe box. Discussed benefits of orthotics which I advised can potentially improve alignment and stability of the lower extremity as well as improve shock absorption of the foot and ankle which may help alleviate symptoms associated with this condition.He purchased prefabricated orthotics today. I discussed the potential of doing a steroid injection, if his symptoms do not improve. All questions and concerns were addressed. 08/17/2024 Right foot pain (ICD-10 - M79.671) 08/17/2024 Arthritis of first metatarsophalangeal (MTP) joint of right foot (ICD-10 - M19.071) Evaluation today included a review of medical history, review of systems, discussion of exam findings, and review of diagnoses and treatment options. His symptoms have improved. He was advised that he can continue to rest, ice and elevate the foot as needed for pain. He can discontinue use of the meloxicam and diclofenac gel as tolerated. I discussed the potential use of a gel bunion cushion in his work boots to prevent rubbing. I also discussed the potential of adjusting his work boots to get a wider toe box. He was advised to continue wearing the prefabricated orthotics. He would like to monitor his symptoms and will call as needed for a flareup of pain. 08/17/2024 Tinea pedis of both feet (ICD-10 - B35.3) He was advised to continue using the antifungal cream. 07/11/2024 Tinea pedis of both feet (ICD-10 - B35.3) I discussed the nature and etiology of tinea pedis as well as the treatment options. Recommended treatment today consisting of topical ketoconazole cream applied QD. 07/11/2024 Right foot pain (ICD-10 - M79.671) Plan Of Treatment No Information Insurance Providers Payer Name Payer Address Payer Phone Subscriber Number Group Number Insured Name Patient Relationship to Insured Coverage Start Date Coverage End Date [facility] [address] [place], [place] [id number] Eddie Roldan Self - patient is the insured Medical (General) History Medical History History ICD Code Diabetes, High cholesterol, high blood p ressure
--- OUTSIDE RECORDS SUMMARY | 2025-04-20 12:16 | XMS_ITS | Clinical Summary ---
Author Organization [facility] rofessional Office [facility] Address [address] [place] [phone] Care Team Providers Care Appeals Manager Name Role Phone Randy Irwin MD, Tobi Luna Primary Care Provide r Unavailable Allergies No known active allergies Medications aspirin (ECOTRIN EC) 81 mg Tablet, Delayed Release (E.C.) Take 81 mg by mouth daily. Active ONETOUCH ULTRA TEST StripIndications:T ype 2 diabetes mellitus without complication, without long-term current use of insulin (CMS/HCC) TEST ONCE DAILY 150 Strip 3 04/26/20 [...] 6 mL 4 04/20/20 19 Active Insulin [place], Disposable, (Wanda Pen Needle) 32 gauge x 5/32 NeedleIndications: Type 2 diabetes mellitus without complication, without long-term current use of insulin ([facility]) Use weekly with Victoza 12 Each 3 [...] Date/Time HGBA1C 7.9 (H) 02/20/2016 11:14 AM [id number] 7.6 (A) 08/20/2017 03:34 PM [id number] 9.5 (A) 04/23/2017 09:30 AM [id number] 8.6 (A) 01/22/2017 09:52 AM LDLCALC 187 (H) 04/09/2017 10:08 AM CREAT 1.11 04/09/2017 10:08 AM Assessment & Plan (09/01/2019 9:31 PM CDT): Diabetes: Inadequate control. Continue current plan of care. Medications reviewed and refilled/adjusted as indicated. See medication orders. Labs ordered/reviewed. Encouraged to get his blood tested. Assessment & Plan (04/20/2019 1:49 PM ENGRAVER PICTURE): Diabetes: Inadequate control. Continue current plan of [...] pressure. Assessment & Plan (04/20/2019 1:51 PM ENGRAVER PICTURE): Stable and Suboptimal control. Resume medication Mixed [...] 02/20/2016 Assessment & Plan (04/20/2019 1:50 PM ENGRAVER PICTURE): Stable. The current medical regimen is effective; [...] Comments Blood Pressure 140/80 04/20/2019 1:08 PM [employer] Pulse 100 04/20/2019 1:08 PM [employer] Temperature 37.1 C (98.7 F) 04/20/2019 1:08 PM [employer]RA[employer] Respiratory Rate 16 04/20/2019 1:08 PM [employer]RAVER [employer] Oxygen Saturation 98% 04/20/2019 1:08 PM [employer] Inhaled Oxygen Concentration - - Weight 103.4 kg (228 lb) 04/20/2019 1:08 PM [employer] Height 175 cm (5' 8.9) 04/20/2019 1:08 PM [employer] Body Mass Index 33.77 04/20/2019 1:08 PM [employer] Plan of Treatment Health Maintenance Due Date [...] (1 of 2) 08/14/2023 INFLUENZA VACCINE (#1) 2024 9, 01/22/2017, 02/20/2016 Procedures Procedure Name Priority Date/Time Associated Diagnosis Comments POC HEMOGLOBIN A1C Routine 08/20/2017 3: 34 PM CDT Type 2 diabetes mellitus without complication, without long-term current use of insulin (CMS/HCC) MICROALBUMIN/CREATI NINE RATIO, RANDOM UR Routine 05/01/2017 10:19 AM [employer] Type 2 diabetes mellitus without complication, without long-term current use of insulin (CMS/HCC) Benign hypertension LIPID PANEL Routine 04/09/2017 10:08 AM [employer] Mixed hyperlipidemia from Last 3 Months or Most Recently Relevant to Health Maintenance Results * (ABNORMAL) POC HEMOGLOBIN A1C (08/20/2017 3:34 PM CDT) HGB A1C POC 7.6(A) 4.0 - 6.0 % [facility] Blood, capillary 08/20/2017 3:34 PM CDT us Toñito Stone MD POINT OF CARE TESTING Final Result [facility] CLIA# [id number] [address] * MICROALBUMIN/CREATININE RATIO, RANDOM UR (05/01/2017 10:19 AM ENGRA[employer]) MICROALBUMIN, URINE <1.2 No Reference Range mg/dL 05/01/2017 3:46 PM [facility] CREATININE, URINE 250.0 40.0 - 278.0 mg/dL 05/01/2017 3:46 PM [facility] Comment: Reference Range varies with fluid intake and diet. MICROALBUMIN/C REAT RATIO, UR <4.8 <17.0 mg/g 05/01/2017 3:46 PM [facility] Urine URINE SPECIMEN OBTAINED BY CLEAN CATCH PROCEDURE / Unknown Collection / Unknown 05/01/2017 10:19 AM [employer] 05/01/2017 10:19 AM [facility] - 05/01/2017 3:46 PM [employer] Condition Microalbumin/Creat ratio Normal Males <17 Normal Females <25 Microalbuminuria Males 17-299 Microalbuminuria Females 25-299 Overt proteinuria >=300 us Toñito Stone MD URINE ORDERABLES Delicia coronado Result [facility]# [id number] [address] [place] [id number] * (ABNORMAL) LIPID PANEL (04/09/2017 10:08 AM [facility]) CHOLESTEROL 269(H) <200 mg/dL 04/09/2017 5:31 PM [facility] TRIGLYCERIDE 139 <150 mg/dL 04/09/2017 5:31 PM [facility] HDL 54 40 - 59 mg/dL 04/09/2017 5:31 PM [facility] LDL CALCULATED 187(H) <100 mg/dL 04/09/2017 5:31 PM [facility] NON-HDL CHOLESTEROL 215(H) <130 mg/dL 04/09/2017 5:31 PM [facility] Blood Venipuncture / Unknown 04/09/2017 10:08 AM [employer] 04/09/2017 10:08 AM [employer] Narrative [facility] - 04/09/2017 5:31 PM [employer] TOTAL CHOLESTEROL mg/dL Desirable <200 Borderline high [...] Toñito Stone MD CHEMISTRY ORDERABLES Final Result [facility] CLIA# [id number] [address] [place] [address] from Last 3 Months or Most Recently Relevant to Health Maintenance Insurance [facility] [employer] PPO [id number] Care Teams Appeals Manager Relationship Specialty Start Date End Date Randy Irwin, Tobi Luna MD PCP - General Internal Medicine 04/20/19
--- OUTSIDE RECORDS SUMMARY | 2025-04-20 12:16 | XMS_ITS | Clinical Summary ---
Author Organization [facility] Address [address] [place] [address] Care Team Providers Care Environmental Compliance Inspector Name Role Phone Toñito Stone MD Primary Care Provider [phone] Source Comments [facility],non-owned Affiliates and Associated Physician Practices is amultiple site organization consisting of ambulatory clinics and hospital sitesin [place], [place], [place] and [place]. This disclosure is being madepursuant to the Care Everywhere program and may not contain all information available regarding this patient. 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
--- OUTSIDE RECORDS SUMMARY | 2025-04-20 12:16 | XMS_ITS | Encounter Summary ---
Author Organization [facility] Health Address [address] [place] [address] Care Team Providers Care Wage Conciliator Name Role Phone Toñito Stone MD Primary Care Provider Encounter Details Date Type Department Care Team (Late st Contact Info) Description 12/21/2013 [facility] Outpatient Visit [facility] [address] [place] [id number] Pino Young MD [address] [place] [address] Social History Tobacco Use Types Packs/Day Years Used Date Smoking Tobacco: Never Alcohol Use Standard Drinks/Week Comments No 0 (1 standard drink = 0.6 oz pur e alcohol) occ Sex and Gender Information Value Date Recorded Sex Assigned at Not on file 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
[2025-04-20 18:54] LABS: Cholesterol 225 mg/dL (0-200); HDL Direct 62 mg/dL; Triglycerides 54 mg/dL (<150)
== END 2025-04-20 11:00 | disposition home or self-care (01) ==
PROVIDERS: PCP Internal Medicine; Visit Provider Nurse Practitioner
DX: E78.5 Hyperlipidemia, unspecified (principal)
CPT/HCPCS: 36415; 80061

== ENCOUNTER 2025-04-21 08:26 | Outpatient (CLI) | payer OTHER, SELFPAY ==
--- NOTE | ~2025-04-21 | XR_ITS ---
EXAMINATION: XR shoulder LT min 2V, 04/21/2025 8:30 STOGIE PACKER HISTORY: Lt shoulder pain x 2 mos s/p repetitive lifting/reaching COMPARISON: No comparisons available. Findings: No acute fracture or malalignment. Severe degenerative changes. Soft tissues unremarkable. Impression: No acute fracture or malalignment. Reviewed, dictated and finalized at location P. IE PACKER Impression: No acute fracture or malalignment.
== END 2025-04-21 08:27 | disposition home or self-care (01) ==
PROVIDERS: PCP Internal Medicine; Visit Provider Nurse Practitioner
DX: M25.512 Pain in left shoulder (principal)
CPT/HCPCS: 73030